=== PATIENT | female | born 1975 | race Caucasian/White ===

== ENCOUNTER 2019-12-24 22:08 | Emergency (ER) | payer MEDICAID ==
[~2019-12-24] VITALS: Ht 157.5 cm; Wt 82.6 kg
[2019-12-24 22:17] VITALS: Ht 157.5 cm; Wt 82.6 kg
[2019-12-24 23:11] VITALS: BP 122/59
== END 2019-12-24 23:11 | disposition home or self-care (01) ==
LOC: ED 22:08
DX: R07.89 Other chest pain (principal); Z90.49 Acquired absence of other specified parts of digestive tract
CPT/HCPCS: J1885